=== PATIENT | male | born 1950 | race Caucasian/White ===

== ENCOUNTER 2022-08-16 14:31 | Emergency (ER) | payer MEDICARE, OTHER ==
[2022-08-16 14:59] VITALS: BP 156/79; PULSE 92; O2SAT 95
[2022-08-16] MEDS ORDERED: Sodium Chloride 0.9% 1000 ML 1,000 ML IV STA (15:26)
[2022-08-16] MEDS ORDERED: Sodium Chloride 0.9% 1000 ML 0 ML ONE (15:30)
[2022-08-16 15:50] LABS: Absolute Neutrophil Ct (ANC) 3.45 x10^3/uL (1.4-6.9); BASOPHIL % 0.4 % (0.0-0.4); Basophil (Absolute #) 0.03 x10^3/uL (0-0.4); Eosinophil % 0.7 % (0.00-5.0); Eosinophil (Absolute #) 0.05 x10^3/uL (0-0.5); Hematocrit 41.6 % (42-50); Hemoglobin 14.3 g/dL (12.5-18.0); IMMATURE GRAN # 0.02 x10^3u/L (0.00-0.03); IMMATURE GRAN % 0.3 % (0.00-0.4); Lymphocyte (Absolute #) 3.02 x10^3/uL (1.0-4.6); Lymphocytes % 41.8 % (24.0-44.0); Mean Cell Volume 96.3 fL (78-100); Mean Corpuscular Hemoglobin 33.1 pg (26-32); Mean Corpuscular Hgb Concent. 34.4 g/dL (32-36); Mean Platelet Volume 9.2 fL (7.5-11.0); Monocyte (Absolute #) 0.66 x10^3/uL (0.0-1.3); Monocytes % 9.1 % (0.0-12.0); Neutrophil % 47.7 % (36.0-66.0); Platelet Count 170 x10^3/uL (150-450); Red Blood Count 4.32 x10^6/uL (4.1-5.6); Red Cell Distribution Width 13.9 % (11.5-14.0); White Blood Count 7.2 x10^3/uL (4.0-10.5)
[2022-08-16 16:09] LABS: ALBUMIN 4.2 g/dL (3.5-5.0); ALKALINE PHOSPHATASE 122 U/L (38-126); ANION GAP 20.6 MEQ/L (5-15); BLOOD UREA NITROGEN 8 mg/dL (9-20); CHLORIDE 105 mmol/L (98-107); Calcium 8.4 mg/dL (8.4-10.2); Carbon Dioxide 21 mmol/L (22-30); Creatinine 1 0.62 mg/dL (0.66-1.25); EST GLOMERULAR FILTRATION RATE > 60.0 ML/MIN; Glucose 72 mg/dL (74-106); MAGNESIUM 1.5 mg/dL (1.6-2.3); Potassium 4.2 mmol/L (3.5-5.1); SGOT/AST 98 U/L (17-59); SGPT/ALT 26 U/L (0-50); SODIUM 142 mmol/L (137-145); Total Protein 8.1 g/dL (6.3-8.2)
--- NOTE | 2022-08-16 17:13 | XRAY ---
CLINICAL HISTORY:Loss of consciousness, dizziness. Trauma. COMPARISON:None; TECHNIQUES:Multiple, contiguous, non-enhanced CT scan of the brain in the axial plane with multiplanar reconstructions in bony and soft tissue windows. CTDI- 53.92 mGy ;Total DLP-1016.25 mGy*cm; FINDINGS: Age-related cortical involutional changes associated with prominence of extra-axial cortical sulci, gyral pattern, Sylvian and interhemispheric fissures, basal cisterns and cerebellar folia and prominent lateral ventricles. Periventricular white matter hypodensities in keeping with chronic microvascular ischemic changes. No acute territorial infarct, bleed, mass effect, or hydrocephalus. No midline shift. There is no mass lesion in either CP angle. Cavum septum pellucidum noted. There is no space-occupying lesion. Posterior fossa structures appear normal. The IACs are unremarkable. The skull bones appear normal. Visualized paranasal sinuses appear clear. Deviated nasal septum towards right side. IMPRESSION: detectable acute intracranial hemorrhage or established acute territory infarction. Age-related brain involutional changes --- Senile atrophic changes. Electronically Signed by: Torey Sandoval MD. (08/16/2022 16:07:17 [employer])
--- NOTE | 2022-08-16 17:57 | XRAY ---
CLINICAL HISTORY:Shortness of Breath; COMPARISON:None; TECHNIQUES:X-ray of chest-AP portable view; FINDINGS: Image is in rotation towards left side. Cardiac size is within normal limits. Curvilinear aortic arch calcification seen. Normal hilar shadows. Emphysematous both lower lung lobes. Nodular opacities seen in left upper and mid zones representing healed granulomas. No major collapse or consolidation. No evidence of pleural effusion or pneumothorax. Soft tissues and bony rib cage appear normal. Degenerative changes in the visualized spine and both shoulder joints. IMPRESSION: 1. Emphysematous both lower lung lobes. Nodular opacities seen in left upper and mid zones representing healed granulomas. CT may be recommended for further evaluation. 2. No major collapse or consolidation. Electronically Signed by: Torey Sandoval MD. (08/16/2022 16:51:28 [employer])
== END 2022-08-16 16:20 | disposition left against medical advice (07) ==
LOC: ED 14:31
DX: R06.02 Shortness of breath (principal)
CPT/HCPCS: 36000; 36415; 70450; 71045; 80053; 82077; 83735; 83880; 84484; 85025; 93005; 99284